=== PATIENT | male | born 1995 | race Caucasian/White ===

== ENCOUNTER 2018-07-25 17:17 | Emergency (ER) | payer SELFPAY ==
[~2018-07-25] VITALS: Ht 177.8 cm; Wt 89.8 kg
[2018-07-25 17:30] VITALS: BP 118/80; PULSE 68; RESP 18; Ht 177.8 cm; Wt 89.8 kg
[2018-07-25] MEDS ORDERED: ACET500C5 PO (20:08)
--- NOTE | 2018-07-25 20:13 | ERD ---
ER Documentation Chief Complaint Chief Complaint laceration left index w/clean knife HPI 23-year-old male with no reported past medical surgical history who presents with laceration to index finger on left hand. States he was using a clean knife to stay in the injury. Noticed some bleeding from the hand which was controlled after placing gauze on it. He otherwise is without complaint. In all fingers without issue. Sensation fully intact. ROS All systems reviewed and are negative except as per history of present illness. Medications Home Meds Active Scripts Acetaminophen* (Tylophen*) 500 Mg Capsule, 1 CAP PO Q6H PRN for PAIN AND OR EL EVATED TEMP, #20 CAP Prov:REED NORRIS PA-C 07/25/18 Allergies Allergies: Coded Allergies: No Known Allergy (Unverified , 07/25/18) PMhx/Soc History of Surgery: No Anesthesia Reaction: No Hx Neurological Disorder: No Hx Respiratory Disorders: No Hx Cardiac Disorders: No Hx Psychiatric Problems: No Hx Miscellaneous Medical Probl: No Hx Alcohol Use: Yes (Occasional) Hx Substance Use: Yes (Marijuana) Hx Tobacco Use: No Smoking Status: Never smoker FmHx Family History: No diabetes, No coronary disease, No other Physical Exam Vitals Vital Signs Date Temp Pulse Resp B/P (MAP) Pulse Ox O2 O2 Flow FiO2 Time Delivery Rate 07/25/18 98.4 68 18 118/80 98 17:30 (93) Physical Exam Const: No acute distress Head: Atraumatic Eyes: Normal Conjunctiva ENT: Normal External Ears, Nose and Mouth. Neck: Full range of motion. No meningismus. Resp: Clear to auscultation bilaterally Cardio: Regular rate and rhythm, no murmurs Abd: Soft, non tender, non distended. Normal bowel sounds Skin: No petechiae or rashes, superficial laceration to index finger left hand, moving finger without issue, SI LT throughout Back: No midline or flank tenderness Ext: No cyanosis, or edema Neur: Awake and alert Psych: Normal Mood and Affect Procedures/MDM 23-year-old male presents with laceration to index finger. Patient is neurovascularly intact moving all fingers without issue. Bleeding controlled. Wound is superficial and Dermabond applied issue. Patient's bleeding was easily controlled in the department and there is no indication of anemia. No evidence of compartment syndrome, neurologic injury, vascular injury, open j oint, tendon laceration, or foreign body. Patient is appropriate for outpatient follow up. Scar minimization instructions given. DISPOSITION PLAN: We discussed follow up with the patient's primary care doctor within 24 to 48 hours. Patient counseled regarding my diagnostic impression and care plan. Prior to discharge all questions answered. Pt agrees with treatment plan and under stands strict return precautions. Precautionary instructions provided including instructions to return to the ER if not improving or for any worsening or changing symptoms or concerns. Disclaimer: Inadvertent spelling and grammatical errors are likely due to EHR/dictation software use and do not reflect on the overall quality of patient care. Also, please note that the electronic time recorded on this note does not necessarily reflect the actual time of the patient encounter. Departure Diagnosis: Primary Impression: Laceration Condition: Stable Patient Instructions: Laceration, Hand Referrals: [facility] YOU HAVE RECEIVED A MEDICAL SCREENING EXAM AND THE RESULTS INDICATE THAT YOU DO NOT HAVE A CONDITION THAT REQUIRES URGENT TREATMENT IN THE EMERGENCY DEPARTMENT. FURTHER EVALUATION AND TREATMENT OF YOUR CONDITION CAN WAIT UNTIL YOU ARE SEEN IN YOUR DOCTORS OFFICE WITHIN THE NEXT 1-2 DAYS. IT IS YOUR RESPONSIBILITY TO MAKE AN APPOINTMENT FOR FOLOW-UP CARE. IF YOU HAVE A PRIMARY DOCTOR --you should call your primary doctor and schedule an appointment IF YOU DO NOT HAVE A PRIMARY DOCTOR YOU CAN CALL OUR PHYSICIAN REFERRAL HOTLINE AT IF YOU CAN NOT AFFORD TO SEE A PHYSICIAN YOU CAN CHOSE FROM THE FOLLOWING [facility] [address] [facility]. [facility] [address] [facility]. [facility] [address] [facility] [address] [facility] [facility] [address] [facility]. [facility]. [address] Additional Instructions: Call your primary care doctor TOMORROW for an appointment during the next 2-3 days.See the doctor sooner or return here if your condition worsens before your appointment time. REED NORRIS PA-C Jul 25, 2018 20:13
== END 2018-07-25 20:27 | disposition home or self-care (01) ==
LOC: FTE 17:17
DX: S61.211A Laceration without foreign body of left index finger without damage to nail, initial encounter (principal); W26.0XXA Contact with knife, initial encounter; Y92.9 Unspecified place or not applicable